=== PATIENT | female | born 2005 | race Caucasian/White ===

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

== ENCOUNTER → 2024-07-26 | Outpatient (CLI) | payer OTHER ==
[2024-07-26 15:14] LABS: Basophils # (A) 0.08 X 10*3/uL (0.00-0.10); Basophils % (A) 0.9 %; Eosinophils # (A) 0.13 X 10*3/uL (0.04-0.35); Eosinophils % (A) 1.5 %; HCT 45.7 % (37.2-46.3); Lymphocytes # (A) 2.77 X 10*3/uL (0.90-5.00); Lymphocytes % (A) 32.3 %; MCH 28.8 pg (27.0-32.0); MCHC 32.8 g/dL (32.0-37.0); MCV 87.7 FL (80.0-97.0); Mean Platelet Volume 9.4 FL (9.5-12.2); Monocytes # (A) 0.78 X 10*3/uL (0.20-1.00); Monocytes % (A) 9.1 %; NRBC Per 100 WBC 0 X 10*3/uL (0.00-0.01); Neutrophils % (A) 56.1 %; Platelet Count 363 X 10*3/uL (140-440); RBC 5.21 X 10*6/uL (4.10-5.20); RDW 12.5 % (11.5-14.5); WBC 8.57 X 10*3/uL (4.50-10.00)
[2024-07-26 15:37] LABS: Chol/HDL Ratio 2.75 Ratio; LDL Cholesterol,Calculated 57.9 mg/dL (0.0-131.0)
[2024-07-26 15:38] LABS: ALT 95 U/L (8-44); AST 54 U/L (13-35); Albumin/Globulin Ratio 1.85 Ratio (1.60-3.17); Alkaline Phosphatase 80 U/L (41-126); BUN/Creat Ratio 13.86 Ratio (12.00-20.00); Blood Urea Nitrogen 9.7 mg/dL (9.0-27.0); Calcium 10.1 mg/dL (8.7-10.3); Carbon Dioxide 25.1 mmol/L (21.6-31.8); Chloride 104 mmol/L (96-109); Globulin 2.7 g/dL (1.6-3.3); Glucose 87 mg/dL (70-110); Potassium 4.3 mmol/L (3.5-5.5); Sodium 142 mmol/L (135-145); T4, Free (Free Thyroxine) 1.23 ng/dL (0.83-1.43); Total Bilirubin 0.4 mg/dL (0.3-1.2); Total Protein 7.7 g/dL (6.2-8.2)
[2024-07-26 15:41] LABS: Follicle Stimulating Hormone 3.9 mIU/mL; Luteinizing Hormone 9.7 mIU/mL
== END | disposition home or self-care (01) ==
LOC: LABWHC1 09:34
PROVIDERS: ATTEND Student in an Organized Health Care Education/Training Program
DX: G89.29 Other chronic pain (principal); R43.8 Other disturbances of smell and taste; R10.13 Epigastric pain
CPT/HCPCS: 36415; 80053; 80061; 82306; 82607; 82746; 83001; 83002; 83013; 83036; 84402; 84403; 84439; 84443; 85025

== ENCOUNTER → 2024-07-28 | Outpatient (CLI) | payer OTHER ==
--- NOTE | 2024-07-29 16:35 | US ---
EXAMINATION TYPE: US abdomen complete DATE OF EXAM: 07/28/2024 COMPARISON: US CLINICAL INDICATION: Female, 18 years old with history of E01.0 THYROMEGALY,E28.2, R10.13 G89.29; F/U right renal cyst TECHNIQUE: Grayscale and color Doppler imaging of the abdomen was performed. FINDINGS: EXAM MEASUREMENTS: Liver Length: 17.4 cm Gallbladder Wall: 0.2 cm CBD: 0.3 cm, color Doppler imaging was utilized to isolate the common bile duct for measurement. Spleen: 9.4 cm Right Kidney: 11.2 x 4.1 x 5.8 cm Left Kidney: 11.6 x 5.6 x 5.0 cm [employer] NOTES: Pancreas: wnl Liver: Heterogeneous with possible fatty sparing near GB and cleo. Gallbladder: wnl Evidence for sonographic Stanton's sign: No CBD: wnl Spleen: wnl Right Kidney: Possible small parapelvic cyst redemonstrated today = 1.9 x 0.7 x 1.6 cm, appears unch anged Left Kidney: wnl, No hydronephrosis, calculi or masses seen Upper IVC: wnl Abd Aorta: wnl IMPRESSION: 1. Fatty infiltration liver with mild hepatomegaly. [facility], , 07/29/2024 4:33 PM
--- NOTE | 2024-07-29 16:39 | US ---
EXAMINATION TYPE: US pelvic complete DATE OF EXAM: 07/28/2024 COMPARISON: US CLINICAL INDICATION: Female, 18 years old with history of E01.0 THYROMEGALY,E28.2, R10.13 G89.29; Pt states PCOS TECHNIQUE: Transabdominal (TA). Transabdominal grayscale sonographic images of the pelvis were acquired. Doppler imaging: Color Doppler Images were obtained. FINDINGS: Date of LMP: Pt states 1 year ago EXAM MEASUREMENTS: Uterus: 5.4 x 2.3 x 3.6 cm Endometrial Stripe: 0.9 cm Right Ovary: 4.6 x 2.7 x 2.4 cm Left Ovary: 5.3 x 2.9 x 2.5 cm 1. Uterus: Anteverted wnl 2. Endometrium: wnl 3. Right Ovary: Enlarged with multiple follicles 4. Left Ovary: Enlarged with multiple follicles 5. Bilateral Adnexa: wnl 6. Posterior cul-de-sac: wnl There are follicles present within the ovaries. A typical peripheral follicles associated with polycy stic ovarian syndrome not apparent. Correlate with the patient's clinical symptoms. Urinary bladder is sonolucent. The posterior wall is normal. IMPRESSION: 1. No suspicious acute changes pelvic ultrasound O-RADS 2021 [email or web address] [facility], Workstation: [email or web address], 07/29/2024 4:37 PM
--- NOTE | 2024-07-29 16:41 | US ---
EXAMINATION TYPE: US thyroid st tissue head/neck DATE OF EXAM: 07/28/2024 COMPARISON: NONE CLINICAL INDICATION: Female, 18 years old with history of E01.0 THYROMEGALY,E28.2, R10.13 G89.29; Pt states doctor felt thyroid was enlarged TECHNIQUE: Grayscale and color Doppler imaging of the thyroid gland. FINDINGS: GLAND SIZE: Right Lobe: 5.1 x 1.6 x 1.8 cm Overall Parenchyma: homogeneous Left Lobe: 4.5 x 1.2 x 1.5 cm Overall Parenchyma: homogeneous Isthmus Thickness: 0.2 cm NODULES RIGHT: # of nodules measured on right: 0 LEFT: # of nodules measured on left: 0 ISTHMUS: # of nodules measured in the isthmus: 0 Bilateral neck scanned, no evidence of lymphadenopathy. Bilateral thyroid appeared wnl. IMPRESSION: 1. Unremarkable thyroid. [facility], , 07/29/2024 4:39 PM
== END | disposition home or self-care (01) ==
LOC: RADUSWWP 08:38
PROVIDERS: ATTEND Student in an Organized Health Care Education/Training Program
DX: N28.1 Cyst of kidney, acquired (principal); K76.0 Fatty (change of) liver, not elsewhere classified; R16.0 Hepatomegaly, not elsewhere classified; E28.2 Polycystic ovarian syndrome; G89.29 Other chronic pain; E01.0 Iodine-deficiency related diffuse (endemic) goiter
CPT/HCPCS: 76536; 76700; 76856